=== PATIENT | female | born 1990 | race Caucasian/White ===

== ENCOUNTER → 2019-05-20 | Outpatient (CLI) | payer BC, OTHER ==
[~2019-05-20] MED LIST: ACEBUTCAFT PO; ACET500 PO; AMOX500 PO; CLOT1TC TP; DICL250 PO; FLUC100; HYDACE5 PO; HYOS.125 SL; LUNESTA; MULVITMINE PO; ONDA8ODT MM; OXYC5; RXAMOX500 PO; RXCODACET PO; Tylenol325 MG PO; Zofran8 MG PO
== END | disposition home or self-care (01) ==
LOC: LAB SHORT 14:07 → LAB EV 14:07
DX: N39.0 Urinary tract infection, site not specified (principal)
CPT/HCPCS: 87077; 87086; 87186

== ENCOUNTER 2020-12-27 16:19 | Emergency (ER) | payer OTHER | END 2020-12-27 17:36 | disposition left against medical advice (07) | LOC: ER 16:19 | DX: Z53.21 Procedure and treatment not carried out due to patient leaving prior to being seen by health care provider (principal) ==

== ENCOUNTER → 2021-11-21 | Outpatient (CLI) | payer OTHER | END | disposition home or self-care (01) | LOC: LAB SHORT 10:28 | DX: N39.0 Urinary tract infection, site not specified (principal) | CPT/HCPCS: 87086 ==

== ENCOUNTER → 2023-06-21 | Outpatient (CLI) | payer OTHER ==
[2023-06-21 09:19] LABS: Source, Urine Clean Catch
[2023-06-21 10:41] LABS: Appearance, Urine Hazy (Clear); Bilirubin, Urine Neg (Neg); Blood, Urine 1+ (Neg); Color, Urine Yellow (P-Yellow); Glucose Qualitative, Urine Neg (Neg); Ketones, Urine Neg (Neg); Leukocyte Esterase, Urine Neg (Neg); Nitrite, Urine Neg (Neg); Protein, Urine Neg (Neg); Urobilinogen, Urine NORM (Normal); pH, Urine 6.5 (5.0-8.0)
[2023-06-21 10:57] LABS: Bacteria Many /hpf; Squamous Epithelial Cells Mod /hpf (Few); Transitional Epithelial Cells Rare /hpf (0-Rare)
[2023-06-21 14:01] LABS: Source, Urine Clean Catch
[2023-06-21 15:47] LABS: Appearance, Urine Turbid (Clear); Bilirubin, Urine Neg (Neg); Blood, Urine 1+ (Neg); Glucose Qualitative, Urine Neg (Neg); Ketones, Urine Neg (Neg); Leukocyte Esterase, Urine Neg (Neg); Nitrite, Urine Neg (Neg); Protein, Urine 1+ (Neg); Specific Gravity, Urine 1.025 (1.003-1.022); Urobilinogen, Urine NORM (Normal)
[2023-06-21 16:03] LABS: Color, Urine Yellow (P-Yellow)
[2023-06-21 16:05] LABS: Amorphous Heavy (0-Heavy); Bacteria Few /hpf; Red Blood Cells, Urine 0-2 /hpf (0-2); Squamous Epithelial Cells Few /hpf (Few); White Blood Cells, Urine 0-2 /hpf (0-5)
== END ==
LOC: LAB 09:17 → LAB SHORT 09:17
PROVIDERS: Internal Medicine
DX: R35.0 Frequency of micturition (principal)
CPT/HCPCS: 81001; 87086

== ENCOUNTER → 2023-10-24 | Outpatient (CLI) | payer OTHER ==
[2023-10-25 18:25] LABS: HIV 1,2 COMBO ANTIGEN/ANTIBODY Negative (Negative)
[2023-10-25 19:15] LABS: HEPATITIS B SURFACE ANTIBODY 54.2 IU/L
[2023-10-25 19:26] LABS: HEPATITIS B SURFACE ANTIGEN Negative (Negative)
[2023-10-26 06:22] LABS: HCV QNT BY NAAT (IU/ML) Not Detected; HCV QNT BY NAAT (LOG IU/ML) Not Detected; HCV QNT BY NAAT INTERP Not Detected (Not Detected)
== END | disposition home or self-care (01) ==
LOC: LAB 12:35 → LAB SHORT 12:35
PROVIDERS: Physician Assistant Medical
DX: Z20.9 Contact with and (suspected) exposure to unspecified communicable disease (principal)
CPT/HCPCS: 84460; 87340; 87389; 87522